=== PATIENT | female | born 1980 | race Caucasian/White ===

== ENCOUNTER → 2020-08-17 | Outpatient (CLI) | payer BC ==
[~2020-08-17] MED LIST: None per pt.
== END | disposition home or self-care (01) ==
LOC: STAR 14:57
PROVIDERS: ATTEND Anesthesiology
DX: Z20.822 Contact with and (suspected) exposure to COVID-19 (principal)
CPT/HCPCS: U0003; U0005

== ENCOUNTER 2020-08-22 07:03 | Day surgery (SDC) | payer BC, OTHER ==
[~2020-08-22] VITALS: Ht 162.6 cm; Wt 73.9 kg
[2020-08-22] MEDS ORDERED: PANT40TA6 PO (07:49)
[2020-08-22] MEDS ORDERED: LACTATED RINGERS 1,000 ML IV SCH (08:00)
[2020-08-22] MEDS ORDERED: CHLORHEXIDINE 15 ML UDC PO ONE (08:00)
[2020-08-22 08:08] VITALS: BP 117/83
[2020-08-22] MEDS ORDERED: MEPERIDINE/PF 25MG/0.5ML IVPush PRN (08:30)
[2020-08-22] MEDS ORDERED: ONDANSETRON 2MG/ML, 2ML IVPush PRN (08:30)
[2020-08-22] MEDS ORDERED: FENTANYL PF 100 MCG/2ML IV PRN (08:30)
[2020-08-22] MEDS ORDERED: HYDROmorphone 1 MG/ML, 1ML INJ IVPush PRN (08:30)
[2020-08-22] MEDS ORDERED: PROPOFOL 50 ML ONE (08:32)
== END 2020-08-22 10:00 | disposition home or self-care (01) ==
LOC: OUT 07:03
PROVIDERS: ATTEND Internal Medicine Geriatric Medicine
DX: C20 Malignant neoplasm of rectum (principal); K21.9 Gastro-esophageal reflux disease without esophagitis; K59.04 Chronic idiopathic constipation; K92.1 Melena; Z79.899 Other long term (current) drug therapy; Z88.5 Allergy status to narcotic agent; Z83.3 Family history of diabetes mellitus; Z82.49 Family history of ischemic heart disease and other diseases of the circulatory system
CPT/HCPCS: 45341; J2704; J7120